=== PATIENT | female | born 1995 | race Caucasian/White ===

== ENCOUNTER 2020-08-19 21:52 | Emergency (ER) | payer SELFPAY ==
[2020-08-19 22:05] VITALS: BP 131/83; PULSE 111; RESP 18; TEMP 36.6; O2SAT 96; BMI 31.3
--- NOTE | 2020-08-19 22:09 | ED_ITS ---
HPI - Back Pain/Injury General: Chief Complaint: Back Pain/Injury Stated Complaint: L LOW BACK PAIN Time Seen by Provider: 08/19/20 22:09 History of Present Illness: HPI Narrative: Patient comes in today with complaints of right low back pain. Patient reports that it started about 2 days ago and she went floating yesterday and today the pain is much worse. Patient reports that she has had pain on and off since 2012 in the same area. Patient appears well. Patient denies any other medical concerns or issues. MD elicited complaint: back pain Pertinent past history: prior back pain Onset (ago): day(s) Timing: intermittent Severity: moderate Similar Symptoms Previously: Yes Quality: aching Location: right lower back Radiation: buttocks Exacerbating factors: movement and sitting upright Relieving factors: none Context: bending Review of Systems General: Reports: 10 or more systems reviewed and unremarkable except in HPI and below Musc: Reports: other (right lower back pain) Physical Exam Const: COMMON NORMALS: no acute distress and patient oriented x3 GENERAL APPEARANCE: cooperative HENMT: COMMON NORMALS: normocephalic and Normal external nose present HEAD & SCALP: normal to inspection and normocephalic NOSE: Normal external nose present Eye: GENERAL EYE: appearance normal, both eyes and all related structures Neck/C-Spine: COMMON NORMALS: full ROM Lymph: LYMPHATIC: no lymphadenopathy noted Chest: COMMONS NORMALS: normal inspection of the chest Resp: COMMON NORMALS: normal respiratory effort EFFORT & INSPECTION: Yes able to speak in complete sentences Cardio: COMMON NORMALS: regular rate and regular rhythm RATE: regular rate RHYTHM: regular rhythm GI: COMMON NORMALS: non-tender : COMMON NORMALS: Yes no CVA tenderness BLADDER/KIDNEY EXAM: Yes no CVA tenderness Back/Pelvis: COMMON NORMALS: no CVA tenderness OTHER: Patient has pain on palpation of the right sacroiliac area. No midline vertebral tenderness is noted on palpation. Extremity: COMMON NORMALS: normal to inspection Neuro: COMMON NORMALS: patient oriented x3 and moves all extremities Psych: COMMON NORMALS: mental status grossly normal and cooperative Skin: COMMON NORMALS: no rashes or lesions noted GENERAL SKIN EXAM: no rashes or lesions noted Course Vital Signs: Vital signs: Vital Signs Temperature 97.9 F 08/19/20 22:05 Pulse Rate 111 H 08/19/20 22:05 Respiratory Rate 18 08/19/20 22:05 Blood Pressure 131/83 08/19/20 22:05 Pulse Oximetry 96 08/19/20 22:05 MDM - Back Pain/Injury MDM Narrative: Medical decision making narrative: Patient comes in for right side low back pain. On exam in the sacroiliac joint area patient has significant tenderness and pain on palpation. Patient has positive leg lift test with the right leg. No vertebral tenderness is noted on palpation. Respirations are even lungs are clear to auscultation. Vital signs are normal. Differential diagnosis includes but not limited to intervertebral disc disease, facet arthropathy, sacroiliitis. Feel that the patient probably has sacroiliac dysfunction due to the way the pain is in the report of recurrent symptoms at times. I discussed with patient recommendations for treatment with anti- inflammatories. Patient reported understanding. We also wrote for a few hydrocodone for breakthrough pain. Patient reported understanding of care plan and need for follow-up or return to the ER. Lab Data: Labs: Lab Results 08/19/20 08/19/20 Range/Units 22:10 22:18 HCG, Qual Negative (Negative) Urine Color Yellow (Yellow) Urine Appearance Clear (CLEAR) Urine pH 5 (5-7) Ur Specific Gravit y 1.015 (1.005-1.030) Urine Protein Neg (Negative) Urine Glucose (UA) Norm (Normal) Urine Ketones Negative (Negative) Urine Blood Neg (Negative) Urine Nitrate Negative (Negative) Urine Bilirubin Neg (Negative) Urine Urobilinogen 1 H (Negative) mg/dL Ur Leukocyte Kamini ase Negative (Negative) Discharge Plan Discharge Patient Disposition: Home Clinical Impression: Sacroiliac dysfunction Condition: Stable Prescriptions: New hydrocodone-acetaminophen 5-325 mg tablet 1 tab PO Q8H PRN (Reason: pain (scale score 7-10)) Qty: 7 RF: 0 naproxen 500 mg tablet 500 mg PO BID Qty: 20 RF: 0 Discharge Orders: Discharge ED (Routine); Ordered 08/19/20 Ordered By: Bear Chan Discharge Diet: Usual diet Discharge Activity: Increase activity as tolerated Patient Instructions: Sacroiliitis (ED), Opioid Safety Activity Restrictions/Additional Instructions: Drink plenty of water with medication. Use naproxen routinely for the next 10 days. Take hydrocodone for breakthrough pain. Use acetaminophen along with the naproxen to control pain. Activity as tolerated. Gentle stretching and range of motion exercises. Follow-up with primary care for further instruction and consideration of other treatment options. Return to the emergency room for new concerns. Stand Alone Forms: Work/School Release Coding Level of Care Code ED Eyelet Operator for Mohsen Dunn Exam Comprehensive
[2020-08-19 22:23] LABS: HCG Qualitative Urine. Negative (Negative)
[2020-08-19 22:27] LABS: Add Urine Microscopic? NO; Charge for UA Resulting for Rev
[2020-08-19 22:32] LABS: Glucose Urine UA Norm (Normal); Ketones Urine Negative (Negative); Protein Urine Neg (Negative); Specific Gravity, Urine 1.015 (1.005-1.030); Urine Appearance Clear (CLEAR); Urine Color Yellow (Yellow); pH Urine 5 (5-7)
[2020-08-19 22:33] LABS: Bilirubin Urine Neg (Negative); Blood Urine Neg (Negative); Leukocyte Esterase Urine Negative (Negative); Nitrate Urine Negative (Negative); Urobilinogen Urine 1 mg/dL (Negative)
[2020-08-19] MEDS: ketorolac 30 mg/mL INJ IM (23:17)
[2020-08-20 00:08] VITALS: BP 135/80; PULSE 75; RESP 165; TEMP 36.6; O2SAT 98
== END 2020-08-20 00:10 | disposition home or self-care (01) ==
PROVIDERS: Emergency Provider Nurse Practitioner Family
DX: M53.3 Sacrococcygeal disorders, not elsewhere classified (principal)
CPT/HCPCS: 81003; 81025; 96372; 99283; J1885

== ENCOUNTER → 2021-02-14 11:30 | Outpatient (BNVA) | payer OTHER, SELFPAY | PROVIDERS: Visit Provider Nurse Practitioner Family | DX: Z20.822 Contact with and (suspected) exposure to COVID-19 (principal) | CPT/HCPCS: 87426; 87635 ==

== ENCOUNTER → 2021-03-27 15:40 | Outpatient (BNVA) | payer OTHER, SELFPAY | PROVIDERS: Visit Provider Nurse Practitioner Family | DX: Z20.822 Contact with and (suspected) exposure to COVID-19 (principal); I10 Essential (primary) hypertension | CPT/HCPCS: 87635 ==

== ENCOUNTER → 2021-03-30 11:13 | Outpatient (BNVA) | payer SELFPAY | PROVIDERS: PCP Nurse Practitioner Family; Visit Provider Nurse Practitioner Family | DX: I10 Essential (primary) hypertension (principal); N92.3 Ovulation bleeding; Z68.30 Body mass index [BMI] 30.0-30.9, adult; J06.9 Acute upper respiratory infection, unspecified | CPT/HCPCS: 80053; 84443; 84703 ==

== ENCOUNTER 2021-04-03 03:35 | Emergency (ER) | payer SELFPAY ==
--- NOTE | 2021-04-03 | USCV_ITS ---
Joy Sorenson Age: 26 Gender: F : 1995 Exam Date: 04/03/2021 04:30 Ordering Phys: Bryan Chapman MD Technologist: Yordy Roa Exam Location: [facility] [place]_ Indication: EVAL FOR LLE DVT PROCEDURES: Venous duplex imaging was performed in only the left lower extremity. The following venous structures were evaluated: common femoral vein, profunda vein, proximal portion of the greater saphenous vein, superficial femoral vein, and the popliteal vein. In addition, the posterior tibial and peroneal trunk were evaluated. Serial compression, augmentation maneuvers, and spectral Doppler flow evaluation were performed. FINDINGS: Normal 2-D Doppler and augmentation and compressibility throughout the lower extremity venous structures. Additional imaging through the proximal calf veins also reveals no thrombus. Limited evaluation of the greater saphenous vein is patent with no thrombus. CONCLUSIONS No DVT left lower extremity. Dr. Es Valdez DO (Electronically Signed) Final Date: 03 April 2021 08:24 S
[2021-04-03 03:43] VITALS: BP 144/99; PULSE 88; RESP 18; TEMP 36.2; O2SAT 99; BMI 34.4
[2021-04-03 03:45] VITALS: PULSE 88
--- NOTE | 2021-04-03 05:28 | W.ED.EXTPRO ---
HPI - Extremity Problem General: Time Seen by Provider: 04/03/21 05:22 Source: patient Mode of arrival: ambulatory Limitations: no limitations History of Present Illness: HPI Narrative: 26-year-old female states that she woke up this morning with a cramp in her left lower leg. She states she has a sharp pain in that left calf she rates a 5 out of 10 worse with walking improved with rest she states she just started HCTZ 2 days ago. Denies any history of blood clots. States she has had no known injuries denies any ankle or knee pain all of her pain is in her calf. Associated symptoms: Deny chest pain, fever(s) or rash Review of Systems Const: Denies: fever(s), chills, body aches or change in appetite Eyes: Denies: blurry vision or eye discomfort ENMT: Denies: throat pain or dental pain Card: Denies: chest pain Resp: Denies: dyspnea GI: Denies: abdominal pain, nausea, vomiting or diarrhea : Denies: dysuria Musc: Reports: extremity pain; Denies: neck pain or back pain Skin/Breast: Denies: rash Neuro: Denies: headache(s) Psych: Denies: depression Todd/Lymph: Denies: easy bruising All/Imm: Denies: urticaria PFSH ED PFSH: Medical History Hypertension Social History (Updated 04/03/21 @ 05:30 by Bryan Chapman MD) Substance/Drug Use: never Physical Exam Const: COMMON NORMALS: no acute distress, patient oriented x3 and healthy appearing HENMT: COMMON NORMALS: normocephalic and atraumatic HEAD & SCALP: normocephalic and atraumatic Eye: COMMON NORMALS: Equal, round and reactive pupils present and EOMs intact bilaterally PUPIL: Yes Equal, round and reactive pupils present Neck/C-Spine: COMMON NORMALS: full ROM and supple Chest: COMMONS NORMALS: normal inspection of the chest and normal palpation of entire chest wall Resp: COMMON NORMALS: normal respiratory effort, No retractions, No use of accessory muscles and clear to auscultation bilaterally AUSCULTATION: clear to auscultation bilaterally Cardio: COMMON NORMALS: regular rate, regular rhythm and No murmurs present (Cardio) RATE: regular rate RHYTHM: regular rhythm GI: COMMON NORMALS: Normal to inspection, nondistended, normoactive bowel sounds present, Soft to palpation, non-tender and no masses PALPATION: Yes Soft to palpation Extremity: COMMON NORMALS: full ROM NARRATIVE EXTREMITY EXAM: Slight tenderness to left calf no obvious deformity distal pulses intact Neuro: COMMON NORMALS: patient oriented x3, moves all extremities and no focal motor deficits Psych: COMMON NORMALS: mental status grossly normal, Normal thought process present and cooperative THOUGHT PROCESS: Normal thought process present Skin: COMMON NORMALS: no rashes or lesions noted and no wounds GENERAL SKIN EXAM: no rashes or lesions noted MDM - Extremity (Nontraumatic) MDM Narrative Medical decision making narrative: Patient presents here with left lower leg pain is likely cramps distal pulses intact ultrasound here showed no signs of DVT electrolytes were normal she is stable for discharge is to follow-up PCP and return if worsening. Lab Data Attestation: I reviewed the patient's lab results. Discharge Plan Discharge Patient Disposition: Home Clinical Impression: Leg pain, left Prescriptions: No Action herbal drugs Tablet PO 0RF hydrochlorothiazide 12.5 mg tablet 12.5 mg PO QAM Qty: 30 0RF Rx Instructions: 340 B benzonatate [Tessalon Perles] 100 mg capsule 100 mg PO TID Qty: 20 0RF Rx Instructions: 340 B Discharge Orders: Discharge ED (Routine); Ordered 04/03/21 Ordered By: Bryan Chapman Referrals: Carmen Bartlett FNP-C [Primary Care Provider] - Discharge Diet: Advance as tolerated Discharge Activity: Resume usual activity Patient Instructions: Leg Pain (ED) Coding Level of Care Code ED Commercial Real Estate Underwriter for Mohsen Dunn
--- NOTE | 2021-04-03 05:42 | PC.NURSE ---
pt arrived during downtime, assessment, meds and triage scanned into chart
[2021-04-03 05:50] LABS: Anion Gap 17.3 (5-19); Blood Urea Nitrogen 13 mg/dL (6-20); Calcium 9.2 mg/dL (8.5-10.5); Carbon Dioxide 23 mmol/L (22-29); Chloride 100 mmol/L (98-107); Glomerular Filtration Rate 87.4 mL/min (90-130); Glucose 106 mg/dL (65-115); Osmolality Calculated 285 mOsm/kg (285-295); Potassium 3.3 mmol/L (3.5-5.1); Sodium 137 mmol/L (136-145)
== END 2021-04-03 05:47 | disposition home or self-care (01) ==
PROVIDERS: Emergency Provider Emergency Medicine; PCP Nurse Practitioner Family
DX: M79.605 Pain in left leg (principal); I10 Essential (primary) hypertension
CPT/HCPCS: 12345; 80048; 93971; 99283

== ENCOUNTER 2021-05-02 11:58 | Emergency (ER) | payer SELFPAY ==
[2021-05-02 12:01] VITALS: BP 149/96; PULSE 69; RESP 18; TEMP 36.7; O2SAT 100; BMI 34.4
--- NOTE | 2021-05-02 12:21 | W.ED.FEMALGU ---
HPI - Female Genitourinary General: Chief complaint: Vaginal Bleeding Stated complaint: Passing bloodclots golfball size Time Seen by Provider: 05/02/21 12:11 Source: patient Mode of arrival: ambulatory Limitations: no limitations History of Present Illness: Patient is a nice 26-year-old female presents to ED today with a complaint of heavy vaginal bleeding that began around 2 AM this morning. Patient tells me she chronically has very abnormal and infrequent menstrual cycles. She states her last normal menstrual cycle was approximately 6 months ago. She is not on any kind of hormonal or control therapies. She states at [facility] they once diagnosed her with PCOS and placed her on Metformin states this did not seem to help with symptoms. She states she is passing golf ball size clots. Patient denies lightheadedness or dizziness. No syncopal episodes. She is not complaining of severe abdominal/pelvic pain or cramping. MD elicited complaint: vaginal bleeding Onset (ago): hour(s) Severity: moderate Vaginal discharge: none Vaginal bleeding: heavy, dark red, clots and # pads per hour (has soaked about 4 adult briefs since onset) Exacerbating factors: none Relieving factors: none Associated symptoms: Reports no associated symptoms; Deny abdominal pain, headache(s) or nausea Treatment prior to arrival: none Possible : unsure if Review of Systems Const: Denies: fever(s), chills, body aches, fatigue or malaise Card: Denies: chest pain Resp: Denies: dyspnea GI: Denies: abdominal pain, nausea, vomiting or diarrhea : Reports: vaginal bleeding and irregular period; Denies: flank pain, dysuria or pelvic pain Musc: Denies: back pain Skin/Breast: Denies: rash Neuro: Denies: headache(s) or dizziness [facility] ED PFSH: Medical History Hypertension Physical Exam Const: COMMON NORMALS: no acute distress, patient oriented x3, no limitations and alert GENERAL APPEARANCE: cooperative NUTRITIONAL APPEARANCE: overweight ORIENTATION/CONSCIOUSNESS: Yes awake, Yes oriented to person, Yes oriented to place and Yes oriented to time Resp: COMMON NORMALS: normal respiratory effort and clear to auscultation bilaterally AUSCULTATION: clear to auscultation bilaterally Cardio: COMMON NORMALS: regular rate and regular rhythm RATE: regular rate RHYTHM: regular rhythm : COMMON NORMALS: Yes no CVA tenderness and Yes normal external appearance BLADDER/KIDNEY EXAM: Yes no CVA tenderness SPECULUM EXAM - CERVIX: Yes Cervical os closed, No Cervical tenderness present and Yes Other cervical findings present (bleeding noted from cervical os; no clots in vaginal canal noted) BIMANUAL EXAM - VAGINA & UTERUS: No Cervical tenderness present and Yes non-tender BIMANUAL EXAM - ADNEXA, OTHER: Yes normal adnexae Back/Pelvis: COMMON NORMALS: no CVA tenderness Neuro: COMMON NORMALS: patient oriented x3 SENSORIUM/ORIENTATION: Yes alert, Yes oriented to person, Yes oriented to place and Yes oriented to time Course Vital Signs: Vital signs: Vital Signs Temperature 98.0 F 05/02/21 12:01 Pulse Rate 69 05/02/21 12:01 Respiratory Rate 18 05/02/21 12:01 Blood Pressure 134/90 05/02/21 13:08 Pulse Oximetry 98 05/02/21 13:08 MDM - Female Medical Decision Making Patient here for complaints of heavy vaginal bleeding. She has not had a menstrual cycle in 6 months. Vitals are normal. H/H normal. US showing top normal size endometrium and small ovarian follicles that could be consistent with PCOS. At this time we will place info with CM to get her set up with DIE STORAGE WORKER. Recommend close observation of symptoms/bleeding. If heavy bleeding persists we spoke about possibly placing her on some TXA or progesterone to help with bleeding. Patient verbalized return to ED precautions. Lab Data : 05/02/21 12:34 05/02/21 13:17 Radiology Impressions Transvaginal US 05/02/21 12:21 IMPRESSION: 1. Top normal size endometrium. No mass identified. 2. Multiple small peripheral ovarian follicles. Consistent with history of polycystic ovarian disease. Laboratory Results WBC 9.0 10^3/uL (4.0-10.0) 05/02/21 12:34 RBC 4.86 10^6/uL (4.1-5.3) 05/02/21 12:34 Hgb 13.5 g/dL (11.5-15.3) 05/02/21 12:34 Hct 41.8 % (37.0-47.0) 05/02/21 12:34 MCV 86.0 fl (81-99) 05/02/21 12:34 MCH 27.8 pg (28.0-34.0) L 05/02/21 12:34 MCHC 32.3 g/dL (30.0-36.0) 05/02/21 12:34 RDW 12.5 % (12.1-15.1) 05/02/21 12:34 Plt Count 418 10^3/cmm (130-400) H 05/02/21 12:34 MPV 9.8 fL (7.4-10.4) 05/02/21 12:34 Neut % (Auto) 65.5 % 05/02/21 12:34 Lymph % (Auto) 28.4 % 05/02/21 12:34 Harnett % (Auto) 3.9 % 05/02/21 12:34 Eos % (Auto) 1.3 % 05/02/21 12:34 Baso % (Auto) 0.6 % 05/02/21 12:34 Neut # (Auto) 5.88 10^3/uL (1.8-7.7) 05/02/21 12:34 Lymph # (Auto) 2.6 10^3/uL (0.8-4.8) 05/02/21 12:34 Harnett # (Auto) 0.4 10^3/uL (0.2-0.9) 05/02/21 12:34 Eos # (Auto) 0.1 10^3/uL (0.0-0.8) 05/02/21 12:34 Baso # (Auto) 0.1 10^3/uL (0.0-0.1) 05/02/21 12:34 Nucleated RBC % (auto) 0 % 05/02/21 12:34 Nucleated RBCs # 0.0 /100WBC 05/02/21 12:34 Sodium 139 mmol/L (136-145) 05/02/21 13:17 Potassium 4.1 mmol/L (3.5-5.1) 05/02/21 13:17 Chloride 104 mmol/L (98-107) 05/02/21 13:17 Carbon Dioxide 25 mmol/L (22-29) 05/02/21 13:17 Anion Gap 14.1 (5-19) 05/02/21 13:17 BUN 10 mg/dL (6-20) 05/02/21 13:17 Creatinine 0.8 mg/dL (0.5-0.9) 05/02/21 13:17 GFR Calculation 87.4 mL/min (90-130) L 05/02/21 13:17 Glucose 99 mg/dL (65-115) 05/02/21 13:17 Calculated Osmolality 287 mOsm/kg (285-295) 05/02/21 13:17 Calcium 10.0 mg/dL (8.5-10.5) 05/02/21 13:17 Total Bilirubin 0.3 mg/dL (0.15-1.2) 05/02/21 13:17 AST 21 U/L (0-32) 05/02/21 13:17 ALT 36 U/L (0-33) H 05/02/21 13:17 Alkaline Phosphatase 109 IU/L (35-105) H 05/02/21 13:17 Total Protein 7.6 g/dL (6.6-8.7) 05/02/21 13:17 Albumin 4.6 g/dL (3.5-5.2) 05/02/21 13:17 Globulin 3.0 g/dL (1.3-4.6) 05/02/21 13:17 HCG, Qual Negative (Negative) 05/02/21 13:17 Discharge Plan Discharge Patient Disposition: Home Clinical Impression: Heavy menstrual bleeding Qualifiers: Menorrhagia type: with irregular cycle Qualified Code(s): N92.1 - Excessive and frequent menstruation with irregular cycle Condition: Stable Prescriptions: No Action herbal drugs Tablet PO 0RF hydrochlorothiazide 12.5 mg tablet 12.5 mg PO QAM Qty: 30 0RF Rx Instructions: 340 B benzonatate [Tessalon Perles] 100 mg capsule 100 mg PO TID Qty: 20 0RF Rx Instructions: 340 B Discharge Orders: Discharge ED (Routine); Ordered 05/02/21 Ordered By: Vangie Alvares Referrals: Carmen Bartlett FNP-C [Primary Care Provider] - Activity Restrictions/Additional Instructions: As we discussed case management should contact you over the next few days to set you up with a community health counselor for further evaluation. Monitor bleeding closely over the next 24 to 48 hours. You need to return to the emergency department for continual heavy bleeding, worsening bleeding, soaking more than 1 pad/brief an hour, lightheadedness/dizziness/passing out episodes, or any other concerns you may have. Coding Level of Care Code ED Exhibits Coordinator for Chg Fwd Exam Expanded Problem Focused
--- NOTE | 2021-05-02 12:21 | US_ITS ---
WS: [id number] TRANSVAGINAL PELVIC ULTRASOUND HISTORY: heavy vaginal bleeding/clots COMPARISON: None available. Uterus: 7.1 cm x 5.7 cm x 3.1 cm. Retroverted uterus is normal size. No fibroid or mass. Normal myome trium. Small nabothian cysts at the cervix. Endometrium: 1.5 cm. Top normal size endometrium. No mass or increased vascularity. Right ovary: 2.8 cm x 2.5 cm x 2.5 cm. Normal size and vascularity, no cystic or solid masses. Maria Elena us small peripheral follicles. Left ovary: 3.7 cm x 2.3 cm x 3.1 cm. Normal size and vascularity, no cystic or solid masses. Numerou s small peripheral follicles. No free fluid. US/US transvaginal [id number] IMPRESSION: 1. Top normal size endometrium. No mass identified. 2. Multiple small peripheral ovarian follicles. Consistent with history of katelin ycystic ovarian disease.
[2021-05-02 12:39] LABS: Basophils # 0.1 10^3/uL (0.0-0.1); Basophils % 0.6 %; Eosinophils # 0.1 10^3/uL (0.0-0.8); Eosinophils % 1.3 %; Hematocrit 41.8 % (37.0-47.0); Hemoglobin 13.5 g/dL (11.5-15.3); Lymphocytes # 2.6 10^3/uL (0.8-4.8); Lymphocytes % 28.4 %; Mean Corpuscular HGB Conc 32.3 g/dL (30.0-36.0); Mean Corpuscular Hemoglobin 27.8 pg (28.0-34.0); Mean Platelet Volume 9.8 fL (7.4-10.4); Monocytes # 0.4 10^3/uL (0.2-0.9); Monocytes % 3.9 %; Neutrophils # 5.88 10^3/uL (1.8-7.7); Neutrophils % 65.5 %; Nucleated Red Blood Cells % 0 %; Platelet Count 418 10^3/cmm (130-400); Red Blood Count 4.86 10^6/uL (4.1-5.3); Red Cell Distribution Width 12.5 % (12.1-15.1)
[2021-05-02 13:08] VITALS: BP 134/90; O2SAT 98
[2021-05-02 13:36] LABS: HCG, Serum Qual Negative (Negative)
[2021-05-02 13:45] LABS: Alanine Aminotransferase 36 U/L (0-33); Albumin Level 4.6 g/dL (3.5-5.2); Alkaline Phosphatase 109 IU/L (35-105); Anion Gap 14.1 (5-19); Aspartate Amino Transferase 21 U/L (0-32); Blood Urea Nitrogen 10 mg/dL (6-20); Carbon Dioxide 25 mmol/L (22-29); Chloride 104 mmol/L (98-107); Glomerular Filtration Rate 87.4 mL/min (90-130); Glucose 99 mg/dL (65-115); Osmolality Calculated 287 mOsm/kg (285-295); Potassium 4.1 mmol/L (3.5-5.1); Sodium 139 mmol/L (136-145); Total Bilirubin 0.3 mg/dL (0.15-1.2); Total Protein 7.6 g/dL (6.6-8.7)
[2021-05-02 14:00] VITALS: BP 122/68; PULSE 76; RESP 16; O2SAT 98
--- NOTE | 2021-05-02 14:27 | PC.NURSE ---
PATIENT DISCHARGE TO HOME- PATIENT VERBALIZES UNDERSTANDING OF ALL INSTRUCTIONS AND FOLLOW UPS, PATIENT AMBULATED FROM THE ED
--- NOTE | 2021-05-08 15:18 | DCPLANNER ---
Addendum entered by Alexus Thao 05/22/21 08:28: catering sales manager spoke with Yuan at [facility] about referral. catering sales manager was told that clinic was unable to reach patient that a letter was sent to patient, asking patient to call clinic to schedule follow up appointment. Original Note: catering sales manager had message to schedule a follow up appointment for patient with [facility]. catering sales manager called [facility], spoke with Yuan, gave clinic patients information. catering sales manager was told that patients information would be printed and reviewed. Clinic will call patient with appointment information.
== END 2021-05-02 14:34 | disposition home or self-care (01) ==
PROVIDERS: Emergency Provider Physician Assistant; PCP Nurse Practitioner Family
DX: N92.1 Excessive and frequent menstruation with irregular cycle (principal); I10 Essential (primary) hypertension
CPT/HCPCS: 76830; 80053; 84703; 85025; 99283

== ENCOUNTER 2021-07-21 10:05 | Inpatient (IN) | payer SELFPAY ==
[2021-07-21] VITALS (22 sets, daily range): BP systolic 102–138; BP diastolic 51–87; PULSE 66–90; RESP 16–22; TEMP 36.7–36.8; O2SAT 96–100; BMI 34.4
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
--- NOTE | 2021-07-21 10:11 | ECG_ITS ---
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 Measurements Intervals [place] Rate: 68 P: 29 LA: 160 QRS: 61 QRSD: 82 T: 54 QT: 376 QTc: 403 Interpretive Statements SINUS RHYTHM WITH OCCASIONAL SUPRAVENTRICULAR PREMATURE COMPLEXES No previous ECG available for comparison Electronically Signed On 07-21-2021 12:38:36 CDT by Carlota Hall M.D. [email or web address]
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
[2021-07-21] MEDS: fentaNYL 50 mcg/mL INJ 2mL IVP ×2 (10:22→11:18)
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
[2021-07-21 10:27] LABS: Basophils # 0.1 10^3/uL (0.0-0.1); Basophils % 0.4 %; Eosinophils # 0.2 10^3/uL (0.0-0.8); Eosinophils % 1.1 %; Hematocrit 34.3 % (37.0-47.0); Hemoglobin 9.6 g/dL (11.5-15.3); Lymphocytes # 2.5 10^3/uL (0.8-4.8); Lymphocytes % 18.6 %; Mean Corpuscular Hemoglobin 20.7 pg (28.0-34.0); Mean Corpuscular Volume 74.1 fl (81-99); Mean Platelet Volume 9.8 fL (7.4-10.4); Monocytes # 0.6 10^3/uL (0.2-0.9); Monocytes % 4.2 %; Neutrophils # 10.14 10^3/uL (1.8-7.7); Neutrophils % 74.9 %; Nucleated Red Blood Cells % 0 %; Platelet Count 490 10^3/cmm (130-400); Red Blood Count 4.63 10^6/uL (4.1-5.3); Red Cell Distribution Width 18.6 % (12.1-15.1); White Blood Count 13.5 10^3/uL (4.0-10.0)
[2021-07-21 10:37] LABS: HCG, Serum Qual Negative (Negative)
[2021-07-21 10:46] LABS: Alanine Aminotransferase 51 U/L (0-33); Albumin Level 4.4 g/dL (3.5-5.2); Alkaline Phosphatase 110 IU/L (35-105); Aspartate Amino Transferase 47 U/L (0-32); Blood Urea Nitrogen 14 mg/dL (6-20); Calcium 9.2 mg/dL (8.5-10.5); Carbon Dioxide 22 mmol/L (22-29); Chloride 105 mmol/L (98-107); Globulin 3.2 g/dL (1.3-4.6); Glomerular Filtration Rate 87.4 mL/min (90-130); Glucose 152 mg/dL (65-115); Osmolality Calculated 293 mOsm/kg (285-295); Sodium 140 mmol/L (136-145); Total Bilirubin 0.3 mg/dL (0.15-1.2); Total Protein 7.6 g/dL (6.6-8.7)
[2021-07-21] MEDS: iohexol 300 mg/mL 100 mL Btl IV (10:46)
[2021-07-21] MEDS: ondansetron 2 mg/ML SDV 2 mL 4 MG IVP (11:23)
[2021-07-21 11:54] LABS: Basophils # 0.1 10^3/uL (0.0-0.1); Basophils % 0.3 %; Eosinophils % 0.1 %; Hematocrit 33.8 % (37.0-47.0); Hemoglobin 9.4 g/dL (11.5-15.3); Lymphocytes # 1.4 10^3/uL (0.8-4.8); Lymphocytes % 5.9 %; Mean Corpuscular HGB Conc 27.8 g/dL (30.0-36.0); Mean Corpuscular Hemoglobin 20.6 pg (28.0-34.0); Mean Platelet Volume 9.7 fL (7.4-10.4); Monocytes # 1.1 10^3/uL (0.2-0.9); Monocytes % 4.4 %; Neutrophils # 21.11 10^3/uL (1.8-7.7); Neutrophils % 88.4 %; Nucleated Red Blood Cells % 0 %; Platelet Count 478 10^3/cmm (130-400); Red Blood Count 4.57 10^6/uL (4.1-5.3); Red Cell Distribution Width 18.5 % (12.1-15.1); White Blood Count 23.9 10^3/uL (4.0-10.0)
[2021-07-21] MEDS: morphine 4 mg/mL SDV 1 mL 6 MG IVP (12:27)
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
[2021-07-21] MEDS: midazolam 1 mg/mL INJ 2 mL 5 MG IVP (13:15)
[2021-07-21] MEDS: fentaNYL 50 mcg/mL INJ 2mL 100 MCG IVP (13:20)
[2021-07-21] MEDS: ceFAZolin 1,000 mg SDV 1000 MG IVP (13:30)
[2021-07-21] MEDS: tetanus-dipt-pertussis 0.5 mL SDV IM (13:45)
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
[2021-07-21] MEDS: bacitracin ointment Pkt 1 EACH TOPICAL (14:35)
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
[2021-07-21] MEDS: morphine 4 mg/mL SDV 1 mL 8 MG IVP (15:15)
[2021-07-21] MEDS: pantoprazole 40 mg SDV IVP (16:16)
--- NOTE | 2021-07-21 16:23 | PC.NURSE ---
1415 Initiation of conscious sedation for reduction of right tib/fib/ankle and repair of bilateral proximal tib/fib lacerations. Consent signed and time out performed. Patient received a total of 5mg of versed and 100 mcg of fentanyl. Ankle reduced by Dr. Lr and xrays immediately obtained/post reduction. Patient tolerated procedure well and Posterior orthoglass splint placed with webril and secured with 6 inch frank x 2. Underlying abrasion of anterior distal tib/fib dressed with xeroform and telfa before placing splint. Left proximal anterior lower leg also cleansed and repaired with suture by Physician. Right laceration cleansed and repaired at anterior proximal lower leg, as well. Length of procedure(s) approx 30 minutes with physician at bedside, at all times Patient tolerated procedures well. Post repair CT of Right knee and ankle performed. Patient remained stable during entire procedure(s)
[2021-07-21] MEDS: HYDROcodone-acetaminophen 5-325 mg Tablet 1 TAB PO ×2 (17:24→21:18)
[2021-07-21] MEDS: enoxaparin 40 mg/0.4 mL Syringe SUBCUT (17:24)
[2021-07-21] MEDS: D5-NS 0.45% + KCL 20 mEq 20 MEQ/1,000 ML BAG 125 MEQ IV (17:25)
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
[2021-07-21 19:12] LABS: Add Urine Microscopic? NO; Charge for UA Resulting for Rev
[2021-07-21 19:15] LABS: Bilirubin Urine Neg (Negative); Blood Urine Neg (Negative); Glucose Urine UA Norm (Normal); Ketones Urine Negative (Negative); Leukocyte Esterase Urine Negative (Negative); Nitrate Urine Negative (Negative); Protein Urine Neg (Negative); Urine Appearance Clear (CLEAR); Urine Color Yellow (Yellow); Urobilinogen Urine Norm (Negative); pH Urine 5 (5-7)
[2021-07-21] MEDS: morphine 4 mg/mL SDV 1 mL IVP ×2 (19:29→23:35)
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
[2021-07-21] MEDS: ceFAZolin 1,000 MG in sodium chloride 0.9% (plus) 50 ML 100 MG IV (21:19)
[2021-07-21] MEDS: scopolamine 1.5 Patch 1 PATCH TRANSDERMA (21:19)
--- NOTE | 2021-07-21 22:17 | PC.NURSE ---
Addendum entered by Lorenza Sevilla RN 07/22/21 03:07: Dr. Buckley at bedside and removed FRANK bandage and cotton to assess ankle alignment. Decided against changing splint into a camboot. Dr. Buckley loosely wrapped foot and not the ankle to the splint. Pt not tolerating frank bandage on ankle or up leg. Original Note: Pt continuously notifying staff of c/o pain to ankle. Rating pain 10/10 on 0-10 scale and tearful. Glennie and morphine administered as ordered. Review EMAR. Attempts at repositioning, ice, and distraction. Continued c/o severe pain. Dr. Buckley called and notified. Dr. Buckley arrived on the unit and reassessed patient. Ankle noted to be in good position. Education given to patient in regards to pain medication. Verbal order to change norco to percocet 10/325 mg 1 tab PO every 4 hours as needed for pain but wait until the four hours after administering the norco to start the percocet. Education given to patient on the time frame and frequency of oxycodone. Patient was unable to recall if she was allergic to hydrocodone or oxycodone as a child. Clarification on the reaction and pt stated a rash. Pt also stating she recently received oxycodone and tolerated it well. No reactions noted this shift to norco administration. Pt requesting fentanyl. Education given that medication is not administered on this unit d/t respiratory depression that can happen.
[2021-07-22] VITALS (23 sets, daily range): BP systolic 100–130; BP diastolic 47–83; PULSE 77–97; RESP 13–18; TEMP 36.2–37.5; O2SAT 90–99
--- NOTE | 2021-07-22 | SCC_ITS ---
Procedure done: Open reduction internal fixation right pilon fracture involving tibia and fibula. CPT code 94503 98.5 seconds of fluoroscopic guidance, for a cumulative dose of 1.88 mGy, was provided to Dr. Irizarry by the radiology department. C-arm images of the RIGHT tibia and fibual were saved for the patient's permanent record. [facility]
--- NOTE | 2021-07-22 | XR_ITS ---
WS: [id number] INTRAOPERATIVE TECHNIQUE: 8 Spot fluoroscopic images for intraoperative purposes. FLUOROSCOPY TIME: 98.5 seconds CLINICAL INFORMATION: YE PICS COMPARISON: None. FINDINGS: Trimalleolar fracture repair. Postoperative changes plate and screw fixation mid and distal fibula. P late and screw fixation across the medial malleolus and posterior malleolus. XR/XR tibia fibula RT 2V [id number] IMPRESSION: Images obtained for intraoperative purposes.
[2021-07-22] MEDS: oxyCODONE-APAP 10-325 mg Tablet 1 TAB PO ×2 (01:31→05:26)
[2021-07-22] MEDS: D5-NS 0.45% + KCL 20 mEq 20 MEQ/1,000 ML BAG 125 MEQ IV ×2 (01:31→18:22)
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
--- NOTE | 2021-07-22 03:10 | PC.NURSE ---
Pt requesting this RN to reposition right ankle. This RN stated not comfortable with moving the ankle d/t the penny wrap only securing the foot to the splint and do not want to compromise blood flow. Pt noted to be restless this shift and making several attempts to reposition RLE herself. PENNY bandage loosened per pt adjustments. RN educated pt on the importance of proper alignment. Pt verbalized understanding then proceeded to ask this RN to place cotton under her right heel. This RN declined and re-educated pt.
[2021-07-22] MEDS: morphine 4 mg/mL SDV 1 mL IVP ×2 (03:30→21:23)
[2021-07-22] MEDS: ceFAZolin 1,000 MG in sodium chloride 0.9% (plus) 50 ML 100 MG IV ×2 (05:26→18:14)
[2021-07-22 05:35] LABS: Basophils % 0.2 %; Eosinophils % 0.1 %; Hematocrit 28.7 % (37.0-47.0); Hemoglobin 7.9 g/dL (11.5-15.3); Lymphocytes # 1.5 10^3/uL (0.8-4.8); Lymphocytes % 16.7 %; Mean Corpuscular HGB Conc 27.5 g/dL (30.0-36.0); Mean Corpuscular Volume 72.7 fl (81-99); Mean Platelet Volume 9.9 fL (7.4-10.4); Monocytes # 0.7 10^3/uL (0.2-0.9); Monocytes % 8.3 %; Neutrophils # 6.55 10^3/uL (1.8-7.7); Neutrophils % 74.4 %; Nucleated Red Blood Cells % 0 %; Platelet Count 374 10^3/cmm (130-400); Red Blood Count 3.95 10^6/uL (4.1-5.3); Red Cell Distribution Width 18.6 % (12.1-15.1); White Blood Count 8.8 10^3/uL (4.0-10.0)
[2021-07-22 05:54] LABS: Anion Gap 13.8 (5-19); Blood Urea Nitrogen 6 mg/dL (6-20); Calcium 8.7 mg/dL (8.5-10.5); Carbon Dioxide 22 mmol/L (22-29); Chloride 106 mmol/L (98-107); Glomerular Filtration Rate 121.8 mL/min (90-130); Glucose 136 mg/dL (65-115); Osmolality Calculated 286 mOsm/kg (285-295); Phosphorus 3.5 mg/dL (2.5-4.5); Potassium 3.8 mmol/L (3.5-5.1); Sodium 138 mmol/L (136-145)
--- NOTE | 2021-07-22 07:07 | PC.NURSE ---
Pt notified this RN of wanting to remove the pad from underneath her. This RN educated pt that it was to protect her from the air lift pad under her. Pt proceeded to lift buttock and state I don't care. It feels like a diaper bunched underneath me and started to remove the pad. Approx 30 minutes later pt notifies this RN that I'm itching and I think it is from the oxycodone . No visible rash or redness noted to body. Pt educated that she is laying on the plastic lift from removing the other. Pt needs continued education.
--- NOTE | 2021-07-22 07:21 | PC.NURSE ---
0720-RN attempted to notify pts of surgery time being changed. there was no answer and voicemail had not been set up. will attempt again.
--- NOTE | 2021-07-22 07:24 | PC.NURSE ---
pt acknowledged that rn called , pt had talked to him and let him know of update surgery time
[2021-07-22] MEDS: acetaminophen 1,000 MG/100 ML PIGGYBACK 400 MG IV (07:56)
[2021-07-22] MEDS: sodium chloride 0.9% 1,000 ML 30 ML IV (08:02)
[2021-07-22] MEDS: diphenhydrAMINE 50 mg/mL SDV 1mL 12.5 MG IVP (08:04)
--- NOTE | 2021-07-22 08:06 | W.PM.OPSUD ---
Surgery/Procedure H&P Update DATE OF PROCEDURE: July 22, 2021 DATE H&P PERFORMED: 07/21/21 CHANGES TO PREVIOUS DOCUMENTATION: None PREOP DIAGNOSIS: Right ankle fracture PLANNED PROCEDURE: Operation Date: 07/22/21 09:20 Proposed Procedures p External Fixator Ankle(Right) - Tate Buckley DPM s ORIF Ankle(Right) - Tate Buckley DPM
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
--- NOTE | 2021-07-22 10:01 | PC.NURSE ---
spoke with patients harsha and gave update
--- NOTE | 2021-07-22 11:36 | PC.NURSE ---
spoke with patient's Enrique and gave him an update
--- NOTE | 2021-07-22 12:14 | ANE.PACU2 ---
Inpatient post-anesthesia follow up: Airway intact: Yes Vital signs: Temperature 98.4 F Pulse Rate 80 Respiratory Rate 18 Blood Pressure 125/74 Pulse Oximetry 97 Oxygen Delivery Me thod Room Air Oxygen Flow Rate 2 Fraction of Inspir ed Oxygen Hydration adequate: Yes Nausea and vomiting: No Pain level: 2 Mental status: Baseline
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
[2021-07-22] MEDS: pantoprazole 40 mg SDV IVP (18:14)
[2021-07-22] MEDS: enoxaparin 40 mg/0.4 mL Syringe SUBCUT (18:15)
[2021-07-22] MEDS: HYDROcodone-acetaminophen 5-325 mg Tablet 1 TAB PO ×2 (19:22→23:29)
[2021-07-23] VITALS (14 sets, daily range): BP systolic 98–117; BP diastolic 57–69; PULSE 92–115; RESP 16–20; TEMP 36.4–37.2; O2SAT 94–100
[2021-07-23] MEDS: ceFAZolin 1,000 MG in sodium chloride 0.9% (plus) 50 ML 100 MG IV ×3 (00:43→17:04)
[2021-07-23] MEDS: D5-NS 0.45% + KCL 20 mEq 20 MEQ/1,000 ML BAG 125 MEQ IV ×3 (00:44→17:27)
[2021-07-23] MEDS: morphine 4 mg/mL SDV 1 mL IVP ×2 (02:25→06:25)
[2021-07-23] MEDS: HYDROcodone-acetaminophen 5-325 mg Tablet 1 TAB PO ×2 (04:22→08:39)
[2021-07-23 04:48] LABS: Basophils % 0.1 %; Hematocrit 28.3 % (37.0-47.0); Hemoglobin 7.8 g/dL (11.5-15.3); Lymphocytes # 1.5 10^3/uL (0.8-4.8); Lymphocytes % 10.3 %; Mean Corpuscular HGB Conc 27.6 g/dL (30.0-36.0); Mean Corpuscular Hemoglobin 20.4 pg (28.0-34.0); Mean Corpuscular Volume 74.1 fl (81-99); Mean Platelet Volume 9.5 fL (7.4-10.4); Monocytes # 0.9 10^3/uL (0.2-0.9); Monocytes % 6.3 %; Neutrophils # 12.43 10^3/uL (1.8-7.7); Neutrophils % 82.7 %; Nucleated Red Blood Cells % 0 %; Platelet Count 404 10^3/cmm (130-400); Red Blood Count 3.82 10^6/uL (4.1-5.3); Red Cell Distribution Width 18.7 % (12.1-15.1)
--- NOTE | 2021-07-23 04:48 | PC.NURSE ---
Pt receiving morphine and norco approx every 4 hours as needed this shift. Review EMAR. Pt noted to be crying in room at this time with c/o severe pain to right ankle and left ribs. Pt stating it's cutting off my circulation to right ankle. Toes noted to be pink and warm. Cap refill 2 seconds. Education that only the surgeon can unwrap the bandage and no signs of decreased blood flow. Pt refused to attempt ice to ankle. Remains elevated on pillows. Education performed on the popliteal block wearing off.
[2021-07-23 05:10] LABS: Blood Urea Nitrogen 6 mg/dL (6-20); Calcium 8.6 mg/dL (8.5-10.5); Carbon Dioxide 24 mmol/L (22-29); Chloride 106 mmol/L (98-107); Glomerular Filtration Rate 121.8 mL/min (90-130); Glucose 129 mg/dL (65-115); Magnesium 2.2 mg/dL (1.7-2.3); Osmolality Calculated 287 mOsm/kg (285-295); Phosphorus 2.6 mg/dL (2.5-4.5); Sodium 139 mmol/L (136-145)
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
--- NOTE | 2021-07-23 09:11 | PM.PN ---
Subjective Subjective: The patient has undergone open reduction internal fixation of her ankle with Dr. Buckley. He will be following her for this. I will continue to follow her for her patella fracture. Medications: Reviewed: Yes Vitals/I&O/Wt Last Vital Signs Temp 98.7 F 07/23/21 07:15 Pulse 106 H 07/23/21 07:15 Resp 16 07/23/21 07:15 BP 98/59 07/23/21 07:15 Pulse Ox 94 07/23/21 07:15 07/22/21 07/23/21 07/23/21 22:59 06:59 14:59 Intake Total 410 / 3210 1556.250 / 4766.250 Output Total 1100 / 1650 1200 / 2850 Balance -690 / 1560 356.250 / 1916.250 Weight last 48 hrs Weight 220 lb Physical Exam Const: COMMON NORMALS: no acute distress, average body habitus, patient oriented x3 and alert GENERAL APPEARANCE: cooperative and comfortable ORIENTATION/CONSCIOUSNESS: Yes awake HENMT: COMMON NORMALS: normocephalic and atraumatic HEAD & SCALP: normocephalic and atraumatic Eye: GENERAL EYE: appearance normal, both eyes and all related structures Chest: COMMONS NORMALS: normal inspection of the chest Resp: COMMON NORMALS: normal respiratory effort EFFORT & INSPECTION: Yes able to speak in complete sentences and Yes symmetric chest movement Extremity: RIGHT LOWER EXTREMITY: Yes knee joint (Dressing removed. Wound is benign with no drainage.) Right knee: Yes inspection (Minimal swelling.), Yes ROM (Not evaluated.) and Yes neurovascular exam (Intact distally.) and Yes foot & digits (Splinted following ORIF. Swelling in toes.) Neuro: COMMON NORMALS: patient oriented x3 SENSORIUM/ORIENTATION: Yes alert Psych: COMMON NORMALS: mental status grossly normal APPEARANCE: Yes grossly normal ATTITUDE: Yes calm and Yes engaged ATTENTION/CONCENTRATION: Yes attention grossly intact Skin: COMMON NORMALS: no rashes or lesions noted GENERAL SKIN EXAM: no rashes or lesions noted Urinary Catheter Management: Bishop: Cath Placed During This Visit: yes Reason for Continuing Indwelling Catheter: Required Immobilization for Trauma or Surgery or Anesthesia Urinary Catheter Date of Insertion: 07/22/21 Urinary Catheter Time of Insertion: 01:30 Data : 07/23/21 04:27 07/23/21 04:27 A&P Assessment and plan (1) Open fracture of right patella: Patellar fracture is only minimally displaced. It should not require open reduction internal fixation. It was washed out in the emergency room and antibiotics were given. The laceration was closed. We will continue antibiotics and observe. Status: Acute (2) Closed pilon fracture of left tibia: Treated with ORIF by Dr. Bcukley yesterday. She is doing well today. Status: Acute Qualifiers: Encounter type: initial encounter Fracture alignment: displaced Qualified Code(s): S82.872A - Displaced pilon fracture of left tibia, initial encounter for closed fracture (3) Closed fracture of right distal fibula: This was addressed at the same time as above. Status: Acute Qualifiers: Encounter type: initial encounter Fracture morphology: unspecified fracture morphology Qualified Code(s): S82.831A - Other fracture of upper and lower end of right fibula, initial encounter for closed fracture Attestations Medical Necessity Statement*: Ongoing care for multiple right lower extremity fractures. Coding Level of Care Code Acute Electrical Contractor for [facility] Fwd Diagnoses Closed pilon fracture of left tibia S82.872A Encounter type: initial encounter Fracture alignment: displaced Closed fracture of right distal fibula S82.831A Encounter type: initial encounter Fracture morphology: unspecified fracture morphology Open fracture of right patella S82.001B
[2021-07-23] MEDS: oxyCODONE-APAP 10-325 mg Tablet 1 TAB PO ×2 (10:40→18:21)
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
[2021-07-23] MEDS: ketorolac 30 mg/mL INJ IVP ×2 (13:05→18:21)
[2021-07-23] MEDS: HYDROmorphone 1 mg/mL INJ 1 mL IVP ×3 (13:05→22:38)
[2021-07-23] MEDS: pantoprazole 40 mg SDV IVP (14:14)
[2021-07-23] MEDS: enoxaparin 40 mg/0.4 mL Syringe SUBCUT (17:04)
[2021-07-24] VITALS (11 sets, daily range): BP systolic 116–140; BP diastolic 67–85; PULSE 94–110; RESP 16–18; TEMP 36.7–37.3; O2SAT 93–96
[2021-07-24] MEDS: ceFAZolin 1,000 MG in sodium chloride 0.9% (plus) 50 ML 100 MG IV ×2 (00:16→08:02)
[2021-07-24] MEDS: oxyCODONE-APAP 10-325 mg Tablet 1 TAB PO ×3 (00:16→15:56)
[2021-07-24] MEDS: ketorolac 30 mg/mL INJ IVP ×3 (00:16→14:55)
[2021-07-24] MEDS: D5-NS 0.45% + KCL 20 mEq 20 MEQ/1,000 ML BAG 125 MEQ IV ×2 (01:39→10:28)
[2021-07-24] MEDS: HYDROmorphone 1 mg/mL INJ 1 mL IVP ×2 (04:22→08:32)
[2021-07-24] MEDS: ondansetron 2 mg/ML SDV 2 mL 4 MG IVP (06:15)
[2021-07-24 06:27] LABS: Basophils % 0.3 %; Eosinophils % 0.2 %; Hematocrit 26.4 % (37.0-47.0); Lymphocytes # 2.2 10^3/uL (0.8-4.8); Lymphocytes % 22.4 %; Mean Corpuscular HGB Conc 26.5 g/dL (30.0-36.0); Mean Corpuscular Hemoglobin 20.1 pg (28.0-34.0); Mean Corpuscular Volume 75.9 fl (81-99); Mean Platelet Volume 9.5 fL (7.4-10.4); Monocytes # 0.8 10^3/uL (0.2-0.9); Monocytes % 8.2 %; Neutrophils # 6.64 10^3/uL (1.8-7.7); Neutrophils % 68.3 %; Nucleated Red Blood Cells % 0.2 %; Platelet Count 331 10^3/cmm (130-400); Red Blood Count 3.48 10^6/uL (4.1-5.3); Red Cell Distribution Width 18.8 % (12.1-15.1); White Blood Count 9.7 10^3/uL (4.0-10.0)
[2021-07-24 06:52] LABS: Anion Gap 12.2 (5-19); Blood Urea Nitrogen 5 mg/dL (6-20); Calcium 7.6 mg/dL (8.5-10.5); Carbon Dioxide 24 mmol/L (22-29); Chloride 106 mmol/L (98-107); Glomerular Filtration Rate 150.3 mL/min (90-130); Glucose 131 mg/dL (65-115); Osmolality Calculated 285 mOsm/kg (285-295); Phosphorus 2.6 mg/dL (2.5-4.5); Potassium 4.2 mmol/L (3.5-5.1); Sodium 138 mmol/L (136-145)
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
--- NOTE | 2021-07-24 16:47 | PC.OT ---
OT TREATMENT HELD TODAY DUE TO SCHEDULED PATIENT DISCHARGE
[2021-07-24] MEDS: enoxaparin 40 mg/0.4 mL Syringe SUBCUT (17:05)
== END 2021-07-24 17:09 | disposition home or self-care (01) | DRG 493 ==
LOC: ER 14:32 → MEDSURG 15:19
PROVIDERS: Podiatrist Foot & Ankle Surgery; Admitting Provider Surgery; Emergency Provider Family Medicine; PCP Nurse Practitioner Family; Visit Provider Surgery
PROC: 0QSG04Z Reposition Right Tibia with Internal Fixation Device, Open Approach (ICD-10-PCS; 2021-07-22 09:00)
DX: S82.871A Displaced pilon fracture of right tibia, initial encounter for closed fracture (principal); S22.42XA Multiple fractures of ribs, left side, initial encounter for closed fracture; S82.001B Unspecified fracture of right patella, initial encounter for open fracture type I or II; V43.53XA Car driver injured in collision with pick-up truck in traffic accident, initial encounter; I10 Essential (primary) hypertension; E28.2 Polycystic ovarian syndrome; D64.9 Anemia, unspecified
CPT/HCPCS: 36415; 51702; 64450; 70450; 71260; 72125; 73562; 73590; 73600; 73700; 74177; 76000; 76942; 80048; 80053; 81003; 83735; 84100; 84703; 85025; 86850; 86900; 90471; 90715; 93005; 94664; 96372; 96374; 96375; 96376; 97116; 97161; 97166; 99285; C1713; C9113; J0690; J1100; J1170; J1200; J1650; J1885; J2250; J2270; J2405; J2704; J2795; J3010; J3490; J7030; Q9967

== ENCOUNTER → 2021-08-10 10:03 | Outpatient (BNVA) | payer SELFPAY | PROVIDERS: PCP Nurse Practitioner Family; Referring Provider Podiatrist Foot & Ankle Surgery; Visit Provider Orthopaedic Surgery | DX: S82.001B Unspecified fracture of right patella, initial encounter for open fracture type I or II (principal); V89.2XXA Person injured in unspecified motor-vehicle accident, traffic, initial encounter | CPT/HCPCS: 27520; 73560 ==

== ENCOUNTER → 2021-08-27 15:11 | Outpatient (BNVA) | payer SELFPAY | PROVIDERS: PCP Nurse Practitioner Family; Visit Provider Podiatrist Foot & Ankle Surgery | DX: Z98.890 Other specified postprocedural states (principal); S82.831A Other fracture of upper and lower end of right fibula, initial encounter for closed fracture; X58.XXXA Exposure to other specified factors, initial encounter | CPT/HCPCS: 73610 ==

== ENCOUNTER 2021-09-03 14:59 | Outpatient (CLI) | payer SELFPAY ==
--- NOTE | 2021-09-03 15:26 | XR_ITS ---
WS: [id number] XR abdomen min 2V 92369 REASON FOR EXAM: Constipation FINDINGS: No free air or retroperitoneal air. Unremarkable bowel gas pattern. No significant calcifications in the abdomen or pelvis. No mass identified. XR/XR abdomen min 2V [id number] IMPRESSION: No acute abnormality.
== END 2021-09-03 15:00 | disposition home or self-care (01) ==
PROVIDERS: PCP Nurse Practitioner Family; Visit Provider Nurse Practitioner Family
DX: K59.00 Constipation, unspecified (principal)
CPT/HCPCS: 74019

== ENCOUNTER 2021-09-07 08:10 | Day surgery (SDC) | payer SELFPAY ==
[2021-09-06 10:16] VITALS: BMI 32.2
[2021-09-07 08:39] LABS: OR HCG Qualitative Urine Negative (Negative)
[2021-09-07] MEDS: gabapentin 300 mg Capsule PO (08:46)
[2021-09-07] MEDS: CELEcoxib 200 mg Capsule 400 MG PO (08:46)
[2021-09-07] MEDS: sodium chloride 0.9% 1,000 ML 30 ML IV (08:47)
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
--- NOTE | 2021-09-07 09:56 | W.PM.OPSUD ---
Surgery/Procedure H&P Update DATE OF PROCEDURE: September 07, 2021 DATE H&P PERFORMED: 09/03/21 CHANGES TO PREVIOUS DOCUMENTATION: None PREOP DIAGNOSIS: Nonhealing wound with fat layer exposed right ankle PLANNED PROCEDURE: Operation Date: 09/07/21 10:30 Proposed Procedures p Surgical preparation of wound bed, application of skin substitute and suture removal right lower extremity 57986,[id number],28230, L97.312(Right) - Tate Buckley DPM
[2021-09-07] MEDS: vancomycin 1,000 MG SDV 1000 MG IRRIGATION (10:30)
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
[2021-09-07 10:56] VITALS: BP 101/58; PULSE 66; RESP 16; TEMP 36.2; O2SAT 94
[2021-09-07 11:00] VITALS: BP 97/60; PULSE 66; RESP 16; O2SAT 95
[2021-09-07 11:05] VITALS: BP 104/69; PULSE 78; RESP 18; O2SAT 99
[2021-09-07 11:09] VITALS: BP 105/72; PULSE 73; RESP 18; TEMP 36.2; O2SAT 99
[2021-09-07 11:16] VITALS: BP 112/75; PULSE 78; RESP 16; TEMP 36.1; O2SAT 99
[2021-09-07 12:11] VITALS: BP 121/87; PULSE 62; RESP 18; O2SAT 100
--- NOTE | 2021-09-07 13:30 | ANE.PACU2 ---
Inpatient post-anesthesia follow up: Airway intact: Yes Vital signs: Temperature 97.0 F Pulse Rate 62 Respiratory Rate 18 Blood Pressure 121/87 Pulse Oximetry 100 Oxygen Delivery Me thod Room Air Oxygen Flow Rate Fraction of Inspir ed Oxygen Hydration adequate: Yes Nausea and vomiting: No Pain level: 1 Mental status: Baseline
== END 2021-09-07 12:15 | disposition home or self-care (01) ==
PROVIDERS: Anesthesiology; PCP Nurse Practitioner Family; Visit Provider Podiatrist Foot & Ankle Surgery
PROC: (CPT 15004; principal; 2021-09-07 10:30)
DX: L97.312 Non-pressure chronic ulcer of right ankle with fat layer exposed (principal); M06.9 Rheumatoid arthritis, unspecified; I10 Essential (primary) hypertension; E28.2 Polycystic ovarian syndrome
CPT/HCPCS: 15004; 15271; 15850; 84703; C1762; J2250; J2704; J3010; J3370; J7030

== ENCOUNTER 2021-09-19 16:15 | Outpatient (CLI) | payer SELFPAY | END 2021-09-19 16:16 | disposition home or self-care (01) | LOC: SPT 16:16 | PROVIDERS: PCP Nurse Practitioner Family; Visit Provider Podiatrist Foot & Ankle Surgery | DX: Z46.89 Encounter for fitting and adjustment of other specified devices (principal); S82.871D Displaced pilon fracture of right tibia, subsequent encounter for closed fracture with routine healing; S82.831D Other fracture of upper and lower end of right fibula, subsequent encounter for closed fracture with routine healing; X58.XXXD Exposure to other specified factors, subsequent encounter | CPT/HCPCS: L4361 ==

== ENCOUNTER 2021-09-21 11:40 | Outpatient (CLI) | payer SELFPAY ==
--- NOTE | 2021-09-21 | USCV_ITS ---
Joy Sorenson Age: 26 Gender: F : 1995 Exam Date: 09/21/2021 13:54 Ordering Phys: Tate Buckley DPM Technologist: NABILA [place] [facility] [place]: rle pain and swelling, s/p ankle surgery 07/22/21 HISTORY: rle leg pain and swelling. PROCEDURES: Venous duplex imaging was performed in only the right lower extremity. Examined bilaterally were the greater saphenous, common femoral, superficial femoral, profunda, popliteal, posterior tibial veins, and peroneal trunk.. FINDINGS: Normal 2-D Doppler and augmentation and compressibility throughout the lower extremity venous structures. Additional imaging through the proximal calf veins also reveals no thrombus. Limited evaluation of the greater saphenous vein is patent with no thrombus.. The left common femoral vein for comparison is normal. CONCLUSIONS No DVT right lower extremity. Dr. Es Valdez DO (Electronically Signed) Final Date: 21 September 2021 14:28 S
== END 2021-09-21 11:41 | disposition home or self-care (01) ==
LOC: RAD 11:41
PROVIDERS: PCP Nurse Practitioner Family; Visit Provider Podiatrist Foot & Ankle Surgery
DX: Z48.89 Encounter for other specified surgical aftercare (principal); M79.89 Other specified soft tissue disorders
CPT/HCPCS: 93971

== ENCOUNTER → 2021-09-25 15:43 | Outpatient (BNVA) | payer SELFPAY | PROVIDERS: PCP Nurse Practitioner Family; Visit Provider Podiatrist Foot & Ankle Surgery | DX: Z98.890 Other specified postprocedural states (principal) | CPT/HCPCS: 73610 ==

== ENCOUNTER 2021-10-25 10:26 | Day surgery (SDC) | payer SELFPAY ==
[2021-10-25] VITALS (9 sets, daily range): BP systolic 94–129; BP diastolic 33–67; PULSE 59–87; RESP 18; TEMP 36.3–36.7; O2SAT 95–100
[2021-10-25 10:49] LABS: OR HCG Qualitative Urine Negative (Negative)
--- NOTE | 2021-10-25 10:59 | P.ANESASSM_ITS ---
Pre-Anesthetic Assessment Height/Weight: Height 1.7 m Weight 90.718 kg Preop Diagnosis: Wound exposed to fat layer right ankle Operation Date: 10/25/21 12:00 Proposed Procedures p Surgical preparation of wound bed, application of skin substitute and suture removal right lower extremity CPT:93161, 15820, 62639,I97.312(Right) - Tate Buckley DPM Familial anesthetic complications: None Was Beta Argelia taken within 24 hours: N/A Was Clonidine taken within 24 hours: N/A Last intake: > 8 hrs Social No alcohol and No tobacco Exam alert, oriented x 3, clear to auscultation bilaterally and regular rate & rhythm Airway Mallampati: Class II Dentition: full Pulmonary None reported CV/HEM None reported None reported Hepatic None reported GI None reported Metabolic None reported Musc/skel Rheumatoid Arthritis Neuropsych None reported Anesthetic Plan ASA status: 2 Anesthesia: MAC Risk of > 500 ml blood loss (7ml/kg in children): No Medications/Allergies Home Medications Medication Instructions Recorded Confirmed Last Taken Type mupirocin 2 % topical ointment 1 applic topical BID #22 grams 10/02/21 10/24/21 Unknown Rx gabapentin 300 mg capsule 300 mg PO Q12H 30 days #60 caps 10/04/21 10/25/21 10/24/21 Rx ibuprofen 800 mg tablet 800 mg PO Q8H 10/23/21 10/24/21 Unknown History Allergies Allergy/AdvReac Type Severity Reaction Status Date / Time aloe Allergy Unknown Verified 10/23/21 15:36 bacitracin Allergy ADR-Itching Verified 10/25/21 10:51 hydromorphone Allergy ALGY-Rash Verified 10/23/21 15:36 [facility] Anesthesia Medical History History of fracture of tibia ORIF right tib/fib Hypertension PCOS (polycystic ovarian syndrome) Surgical History S/P knee surgery ORIF right tib/fib Social History Smoking and tobacco status: never smoked Smoking risk assessment/counseling performed?: Yes (Not currently using tobacco.) Alcohol intake: never Counseling given: No Household members: significant other Housing: House Marital status: Current occupational status: unemployed Female Reproductive History Date of last menstrual period: 08/06/21 Para: 0 Spontaneous abortions: No Data Anesthesia Cardiac Studies: No Data to Display
[2021-10-25] MEDS: sodium chloride 0.9% 1,000 ML 30 ML IV (11:00)
--- NOTE | 2021-10-25 12:00 | W.PM.OPSUD ---
Surgery/Procedure H&P Update DATE OF PROCEDURE: October 25, 2021 DATE H&P PERFORMED: 10/23/21 CHANGES TO PREVIOUS DOCUMENTATION: none PREOP DIAGNOSIS: Wound exposed to fat layer right ankle PLANNED PROCEDURE: Operation Date: 10/25/21 12:00 Proposed Procedures p Surgical preparation of wound bed, application of skin substitute and suture removal right lower extremity CPT:62753, 08405, 53635,I97.312(Right) - Tate Buckley DPM
[2021-10-25] MEDS: ceFAZolin 2,000 MG in sodium chloride 0.9% (plus) 50 ML 100 MG IV (12:14)
[2021-10-25] MEDS: lidocaine 2% INJ 20 mL 10 ML INJECTION (12:28)
--- NOTE | 2021-10-25 12:42 | PM.OP ---
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 Post-op diagnosis: Same Procedure done: Surgical preparation of wound bed, application of skin substitute right lower extremity CPT: 76286, 06467 Implants: 5-0 Monocryl Specimens removed/disposition: None Pathology: None Surgeon: Tate Buckley D.P.M. New Client Banking Services Clerk: Pascual Estimated blood loss: 5 0 Brief History: Patient doing well with range of motion exercises will continue with this.? Weightbearing as tolerated.? Delaying her recovery and getting back into physical therapy and normal bathing at this time as her wounds at the anterior medial right ankle and posterior lateral right ankle.? Discussed benefit of surgical debridement and application of biologic graft to potentially accelerate granulation tissue and scaffolding for healing patient would like to proceed with this.? Planning on outpatient surgical debridement with wound bed preparation and application of biologic graft 10/25/2021 under MAC anesthesia.? Risks include pain, bleeding, numbness, infection, failure to incorporate biologic graft and need for further surgical intervention. Procedure: Under mild sedation the patient was brought to the operating room and remained on the gurney in supine position. A timeout was performed. Anesthesia was then administered by the anesthesia service. Local anesthesia was injected by myself consisting of 20 cc of one-to-one mixture 1% lidocaine and 0.25% Marcaine plain proximal in a V-block fashion to the medial malleolus and posterior lateral ankle. Well-padded pneumatic tourniquet applied to the right high calf. This was not inflated or utilize during the duration of the procedure. Right lower extremity was scrubbed, prepped and draped utilizing normal aseptic technique. Attention was directed to the medial anterior right ankle as well as posterior lateral ankle where a wound exposed fat layer was appreciated with fiber granular base. Devitalized epidermis, dermis, subcutaneous tissue and devitalized fat layer was sharply and excisionally debrided with pickups and a #15 scalpel. All devitalized tissue was debrided and an improved bleeding granular base was appreciated. Next utilizing manufacture technique a Stratta bioengineered graft was sewed to the wound bed utilizing 5-0 Monocryl. Post debridement wound measurements at the anterior medial wound right ankle 4.4 cm x 2.7 cm x 0.2 cm and posterior lateral wound at the right ankle postdebridement wound measurements were 2.2 cm x 0.4 cm x 0.2 cm. The areas were then dressed utilizing nonadherent Adaptic, sterile 4 x 4, Kerlix and Sudheer wrap. Patient tolerated the procedure and anesthesia well and was transferred to the PACU with vital signs stable and vascular status intact. Following a period of postop monitoring she will be discharged home. Was given instructions to change the outer dressings and leave the Adaptic layer undisturbed starting tomorrow and to do this once daily. Will follow-up in podiatry clinic next week.
--- NOTE | 2021-10-25 12:55 | ANE.PACU2 ---
Inpatient post-anesthesia follow up: Airway intact: Yes Vital signs: Temperature 97.4 F Pulse Rate 77 Respiratory Rate 18 Blood Pressure 100/55 Pulse Oximetry 95 Oxygen Delivery Me thod Room Air Oxygen Flow Rate 6 Fraction of Inspir ed Oxygen Hydration adequate: Yes Nausea and vomiting: No Pain level: 1 Mental status: Baseline
== END 2021-10-25 13:44 | disposition home or self-care (01) ==
PROVIDERS: Anesthesiology; PCP Nurse Practitioner Family; Visit Provider Podiatrist Foot & Ankle Surgery
PROC: (CPT 13160; principal; 2021-10-25 12:00)
DX: L97.312 Non-pressure chronic ulcer of right ankle with fat layer exposed (principal); M06.9 Rheumatoid arthritis, unspecified; I10 Essential (primary) hypertension; E28.2 Polycystic ovarian syndrome
CPT/HCPCS: 15004; 15271; 81025; 84703; C1763; J2250; J2405; J2704; J3010; J3490; J7030

== ENCOUNTER 2021-11-27 06:00 | Outpatient (RCR) | payer SELFPAY | END 2021-12-07 23:59 | disposition home or self-care (01) | LOC: SPT 06:00 | PROVIDERS: PCP Nurse Practitioner Family; Visit Provider Podiatrist Foot & Ankle Surgery | DX: Z47.89 Encounter for other orthopedic aftercare (principal); M25.571 Pain in right ankle and joints of right foot | CPT/HCPCS: 97110; 97161 ==

== ENCOUNTER → 2021-12-05 07:53 | Outpatient (BNVA) | payer SELFPAY | PROVIDERS: PCP Nurse Practitioner Family; Visit Provider Podiatrist Foot & Ankle Surgery | DX: Z98.890 Other specified postprocedural states (principal); L97.312 Non-pressure chronic ulcer of right ankle with fat layer exposed; S82.831D Other fracture of upper and lower end of right fibula, subsequent encounter for closed fracture with routine healing; S90.511D Abrasion, right ankle, subsequent encounter; S82.871D Displaced pilon fracture of right tibia, subsequent encounter for closed fracture with routine healing; X58.XXXD Exposure to other specified factors, subsequent encounter; Z48.89 Encounter for other specified surgical aftercare | CPT/HCPCS: 73610 ==

== ENCOUNTER 2021-12-08 06:00 | Outpatient (RCR) | payer SELFPAY | END 2022-01-07 23:59 | disposition home or self-care (01) | LOC: SPT 06:00 | PROVIDERS: PCP Nurse Practitioner Family; Visit Provider Podiatrist Foot & Ankle Surgery | DX: Z47.89 Encounter for other orthopedic aftercare (principal); M25.571 Pain in right ankle and joints of right foot | CPT/HCPCS: 97110 ==

== ENCOUNTER → 2021-12-20 10:15 | Outpatient (BNVA) | payer SELFPAY | PROVIDERS: PCP Nurse Practitioner Family; Visit Provider Podiatrist Foot & Ankle Surgery | DX: S90.511D Abrasion, right ankle, subsequent encounter (principal); S82.871D Displaced pilon fracture of right tibia, subsequent encounter for closed fracture with routine healing; X58.XXXD Exposure to other specified factors, subsequent encounter; S82.831D Other fracture of upper and lower end of right fibula, subsequent encounter for closed fracture with routine healing; L97.312 Non-pressure chronic ulcer of right ankle with fat layer exposed; Z98.890 Other specified postprocedural states; Z48.89 Encounter for other specified surgical aftercare | CPT/HCPCS: 73610 ==

== ENCOUNTER 2021-12-20 11:46 | Outpatient (CLI) | payer SELFPAY | END 2021-12-20 11:47 | disposition home or self-care (01) | LOC: SPT 11:46 | PROVIDERS: PCP Nurse Practitioner Family; Visit Provider Podiatrist Foot & Ankle Surgery | DX: Z46.89 Encounter for fitting and adjustment of other specified devices (principal); S82.831D Other fracture of upper and lower end of right fibula, subsequent encounter for closed fracture with routine healing; S90.511D Abrasion, right ankle, subsequent encounter; S82.871D Displaced pilon fracture of right tibia, subsequent encounter for closed fracture with routine healing; X58.XXXD Exposure to other specified factors, subsequent encounter; L97.312 Non-pressure chronic ulcer of right ankle with fat layer exposed; Z48.89 Encounter for other specified surgical aftercare; Z98.890 Other specified postprocedural states | CPT/HCPCS: 97760; L1902 ==

== ENCOUNTER → 2022-01-16 11:09 | Outpatient (BNVA) | payer SELFPAY | PROVIDERS: PCP Nurse Practitioner Family; Visit Provider Podiatrist Foot & Ankle Surgery | DX: Z01.818 Encounter for other preprocedural examination (principal) | CPT/HCPCS: 36415; 82306; 82607; 83036 ==

== ENCOUNTER → 2022-01-23 10:47 | Outpatient (BNVA) | payer SELFPAY | PROVIDERS: PCP Nurse Practitioner Family; Visit Provider Podiatrist Foot & Ankle Surgery | DX: T84.84XD Pain due to internal orthopedic prosthetic devices, implants and grafts, subsequent encounter (principal); S82.831D Other fracture of upper and lower end of right fibula, subsequent encounter for closed fracture with routine healing; S82.871D Displaced pilon fracture of right tibia, subsequent encounter for closed fracture with routine healing; X58.XXXD Exposure to other specified factors, subsequent encounter; Z98.890 Other specified postprocedural states; M85.871 Other specified disorders of bone density and structure, right ankle and foot | CPT/HCPCS: 73630 ==

== ENCOUNTER 2022-02-08 10:29 | Day surgery (SDC) | payer SELFPAY ==
[2022-02-07 11:27] VITALS: BMI 32.8
[2022-02-08] VITALS (11 sets, daily range): BP systolic 90–130; BP diastolic 46–80; PULSE 56–80; RESP 10–21; TEMP 36.3–36.5; O2SAT 11–99
[2022-02-08 11:15] LABS: OR HCG Qualitative Urine Negative (Negative)
[2022-02-08] MEDS: gabapentin 300 mg Capsule PO (11:24)
[2022-02-08] MEDS: CELEcoxib 200 mg Capsule 400 MG PO (11:24)
[2022-02-08] MEDS: sodium chloride 0.9% 1,000 ML 30 ML IV (11:24)
--- NOTE | 2022-02-08 11:30 | ANES.PREANE2 ---
Pre-Anesthetic Assessment Height/Weight: Height 1.7 m Weight 95.254 kg Temp Pulse Resp BP Pulse Ox O2 Del Method 97.3 F L 75 18 130/71 99 02/08/22 11:06 02/08/22 11:06 02/08/22 11:06 02/08/22 11:06 02/08/22 11:06 02/08/22 11:06 Preop Diagnosis: Painful hardware right ankle Operation Date: 02/08/22 12:00 Proposed Procedures p Deep hardware removal, right ankle 35568,T84.84XA(Right) - Tate Buckley DPM Familial anesthetic complications: none Was Beta Argelia taken within 24 hours: N/A Was Clonidine taken within 24 hours: N/A Last intake: Intake Last Liquid Date 02/07/22 Last Liquid Time 18:00 Last Solid Date 02/07/22 Last Solid Time 18:00 Social No alcohol and No tobacco Exam alert, oriented x 3, clear to auscultation bilaterally and regular rate & rhythm Airway Mallampati: Class II Dentition: full Pulmonary None reported Musc/skel Rheumatoid Arthritis Anesthetic Plan ASA status: 2 Anesthesia: General Risk of > 500 ml blood loss (7ml/kg in children): No Other Pertinent Information Patient offered nerve block, but refuses to have it performed while awake. Will check on patient in recovery to see if she would like block at that time. Medications/Allergies Home Medications Medication Instructions Recorded Confirmed Last Taken Type mupirocin 2 % topical ointment 1 applic topical BID #22 grams 10/02/21 02/07/22 Unknown Rx ibuprofen 800 mg tablet 800 mg PO Q8H 10/23/21 02/07/22 Unknown History gabapentin 300 mg capsule See Rx Instructions .Route 10/31/21 02/07/22 02/07/22 Rx .COMPLEX #60 caps ASO #1 ea 12/20/21 02/04/22 Unknown Rx tramadol 50 mg tablet (Ultram) 50 mg PO Q4H PRN pain 7 days #42 01/23/22 02/07/22 02/08/22 Rx tabs Allergies Allergy/AdvReac Type Severity Reaction Status Date / Time aloe Allergy Unknown Verified 02/04/22 11:30 bacitracin Allergy ADR-Itching Verified 02/04/22 11:30 hydromorphone Allergy ALGY-Rash Verified 02/04/22 11:30 Current Medications Generic Name Dose Route Start Last Admin Trade Name Damaris PRN Reason Stop Dose Admin Sodium Chloride 1,000 mls @ 30 mls/hr 02/08/22 10:45 02/08/22 11:24 Sodium Chloride 0.9% IV 02/09/22 10:44 30 mls/hr .Q24H KALEE Administration PFSH Anesthesia Medical History History of fracture of tibia ORIF right tib/fib Hypertension PCOS (polycystic ovarian syndrome) Surgical History S/P knee surgery ORIF right tib/fib Social History Smoking and tobacco status: never smoked Smoking risk assessment/counseling performed?: Yes (Not currently using tobacco.) Alcohol intake: never Counseling given: No Household members: significant other Housing: House Marital status: Current occupational status: unemployed Female Reproductive History Date of last menstrual period: 02/03/22 Para: 0 Spontaneous abortions: No Data Anesthesia Cardiac Studies: No Data to Display
--- NOTE | 2022-02-08 11:30 | W.PM.OPSUD ---
Surgery/Procedure H&P Update DATE OF PROCEDURE: February 08, 2022 DATE H&P PERFORMED: 02/04/22 CHANGES TO PREVIOUS DOCUMENTATION: None PREOP DIAGNOSIS: Painful hardware right ankle PRIMARY INDICATION FOR PROCEDURE: Painful retained hardware, right lower extremity. PLANNED PROCEDURE: Operation Date: 02/08/22 12:00 Proposed Procedures p Deep hardware removal, right ankle 88850,T84.84XA(Right) - Tate Buckley DPM
[2022-02-08] MEDS: ceFAZolin 2,000 MG in sodium chloride 0.9% (plus) 50 ML 100 MG IV (12:03)
--- NOTE | 2022-02-08 13:32 | SUR.OPER ---
1307 pt repositioned to prone position by OR team. all positioning verified by anesthesia and dr. ta.
--- NOTE | 2022-02-08 14:02 | PM.OP ---
Operative Report Date of procedure: February 08, 2022 Pre-op diagnosis: Preop Diagnosis Painful hardware right ankle Post-op diagnosis: Same Post-op findings: Hardware removed successfully without fragmentation or failure Procedure done: Deep hardware removal x3 right ankle. CPT code 98826 x3. 3 separate incisions, 3 hardware constructs removed. Implants: 3-0 Vicryl, 4-0 Vicryl, 4-0 nylon, skin janet. Specimens removed/disposition: [facility] medial malleolus hook plate with 3.5 millimeter screws. [place] one third tubular plate with 3.5 millimeter screws. [facility] posterior tibial plate with 4.0 millimeter screws. Pathology: None Surgeon: Tate Buckley D.P.M. Business Process Manager: John Estimated blood loss: 5 See intraoperative documentation IV fluids: None Urine output: None Complications: None Findings: Hardware removed successfully x3 Brief History: Patient presents with increased pain that she believes comes from hardware, has had increased pain after working with physical therapy near the site of hardware.? Would like to discuss hardware removal.? I explained to the patient that her pain is multifactorial.? 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 She understands at this will potentially be a staged procedure ending with arthrodesis.? I reviewed at length with the patient, the risks, potential complications, benefits, alternatives, expectations, and typical outcomes associated with the surgery. The risks and potential complications were explained in detail, including but not limited to infection, wound dehiscence or soft tissue complications, bleeding and hematoma, chronic edema, neuritis or nerve damage producing numbness or chronic pain, CRPS, failure to relieve pain or worsening pain, thick / painful / unsightly scar, limited motion / stiffness, malposition, delayed union, malunion, or nonunion, fracture, reaction to implants, anesthetic complications, venous thromboembolism, and deformity recurrence.? I discussed the notion of no regrets with the patient as it pertains to complications and outcomes. The patient seemed to understand the nature of the proposed care and required convalescence. They asked appropriate questions, answered to their satisfaction. They are aware no guarantees can be made as to a satisfactory outcome and they understand there may be other possible unforeseen complications or outcomes not listed here that will be treated accordingly if they arise. There were no written or implied guarantees given to the patient. ? Patient is n.p.o. since midnight, informed consent signed by patient and myself, initialed her right lower extremity. Patient wishes to proceed. Procedure: Under mild sedation the patient was brought to the operating room and remained on the gurney in supine position. A timeout was performed. Anesthesia was then administered by the anesthesia service. Local anesthesia injected by myself consisting of total of 30 cc 2:1 ratio 20 cc of 0.5 to Marcaine plain and 10 cc of Exparel mixed in a right five-point ankle block fashion. Well-padded pneumatic tourniquet applied to the right high calf. The right lower extremity was scrubbed, prepped and draped utilizing normal aseptic technique. The right lower extremity was exanguinated with an Esmarch bandage and the tourniquet was inflated to 250 mmHg. Attention was directed to the right lateral ankle where over the previous well-healed cicatrix a #15 blade was utilized to perform skin incision with dissection carried down through subcutaneous tissue to the layer of hardware at the right lateral fibula distally. Care was taken to retract and preserve neurovascular and tendinous structures. All bleeders were ligated and cauterized as necessary. Removed 7 screws and a one third tubular plate followed by saline flush. I was able to inspect directly the fracture consistent with Justus Le C of the right fibula. No motion or micromotion appreciated with loading and palpation at the fracture site. The incision was irrigated with copious amounts of sterile skin solution. Negative cotton hook test observed intraoperatively with C arm under live. Further irrigation was performed followed by closure of the lateral right ankle incision utilizing 3-0 Vicryl at periosteum, 4-0 Vicryl subcutaneous tissue and skin janet. All hardware was explanted successfully without failure or fragmentation and passed to the back table. Attention was then directed to the right medial ankle where a curvilinear incision was made over the medial malleolus through skin with a #15 blade with dissection carried down carefully through subcutaneous tissue utilizing accommodation of sharp and blunt technique. Care was taken to retract and preserve neurovascular and tendinous structures. All bleeders were ligated and cauterized as necessary. The medial hook plate was encountered and a total of 3 screws and the hook plate were explanted in total without failure or fragmentation these were passed from the operative field to the back table. The incision was irrigated with copious amounts of sterile saline solution and closed in a layered fashion with 3-0 Vicryl at periosteum. 4-0 Vicryl subcutaneous tissue and 3-0 nylon at skin utilizing horizontal mattress and simple interrupted suture technique. The incision both laterally and medially were then dressed with sterile 4 x 4 gauze and sterile Coban and sterile field was taken down. The patient was then positioned from the gurney to prone position on the OR table with appropriate offloading and support. Coban and 4 x 4's were then removed and the right lower extremity was scrubbed, prepped and draped utilizing normal aseptic technique. The right foot was exanguinated as well as the right ankle and lower extremity with an Esmarch bandage followed by inflation of the right high calf tourniquet to 250 mmHg. Attention was then directed to the right posterior ankle where previous cicatrix was identified and directly into the previous cicatrix a linear longitudinal incision was made with #15 blade with dissection carried carefully down to hardware utilizing blunt and sharp technique. Care was taken to retract and preserve neurovascular and tendon structures. All bleeders were ligated and cauterized as necessary. Achilles tendon was retracted medially and flexor compartmental muscles laterally. The [place] medical plate was identified and a total of 5 screws all 4 mm in diameter were explanted in total along with the plate without failure or fragmentation. The incision was flushed with copious amounts of sterile saline solution followed by closure in a layered fashion with 3-0 Vicryl at deep fascia and periosteum. Subcutaneous tissue reapproximated utilizing 4-0 Vicryl and skin reapproximated with 4-0 nylon. Range of motion of the right ankle is smooth without crepitus intraoperatively and was able to appreciate 10 degrees of dorsiflexion and 40 degrees of plantarflexion. Ankle joint appeared stable and previously documented fractures appeared stable under stress views. The incisions were dressed with Adaptic, sterile 4 x 4's, Kerlix and Sudheer wrap followed by application of well-padded multilayer compressive posterior splint. Tourniquet was deflated and a prompt hyperemic response was noted to the distal digits of the right foot. Patient tolerated the procedure and anesthesia well and was transferred to the PACU with vital signs stable and vascular status intact. Following a period of postop monitoring she will be discharged home. Advised strict nonweightbearing at this time. She was given at home care instructions as well as follow-up and my cell phone number to contact me with any postoperative questions or concerns.
--- NOTE | 2022-02-08 14:21 | XR_ITS ---
WS: [id number] ANKLE RIGHT TECHNIQUE: 3 views of the right ankle CLINICAL INFORMATION: post op hardware removal COMPARISON: None. FINDINGS: Demineralization. Recent postoperative changes with hardware removal. Normal ankle mortise. Hardware screw tracks. Healed fracture involving the distal 3rd fibula shaft with callus formation and slight cortical irregularity. Normal talar dome. XR/XR ankle RT min 3V* [id number] IMPRESSION: Normal for postoperative purposes.
[2022-02-08] MEDS: ondansetron 2 mg/ML SDV 2 mL 4 MG IVP ×2 (14:33→14:40)
[2022-02-08] MEDS: metoclopramide 5 mg/mL SDV 2 mL 10 MG IVP (14:58)
--- NOTE | 2022-02-08 15:01 | ANES.PROC ---
Anesthesia Procedures Procedure/Date: 02/08/22 Nerve Block ^: Nerve Block 1: Main Anesthesia: general anesthesia Time Out Performed: Yes Consent: requested by attending/covering physician, from patient, from other, risks and benefits reviewed and patient agrees to proceed Nerve block location: popliteal (R) Anesthesia monitors applied: pulse oximetry, EKG, BP cuff and oxygen Nerve block position: supine Anesthetic Used: ropivicaine 0.5% (30 ml) and with decadron (4 mg) Ultrasound used to: recognize landmarks Nerve Stimulator Used?: No Interscalene/Femoral BLK: 4 stimuplex 21 g needle used for position and inplane approach and visualize local anesthetic spread Injection: neg aspiration of heme Patient Tolerated Procedure: well and no complications Complications: none
--- NOTE | 2022-02-08 15:09 | ANE.PACU2 ---
Inpatient post-anesthesia follow up: Airway intact: Yes Vital signs: Temperature 97.7 F Pulse Rate 79 Respiratory Rate 20 Blood Pressure 97/80 Pulse Oximetry 20 Oxygen Delivery Me thod Room Air Oxygen Flow Rate 10 Fraction of Inspir ed Oxygen Hydration adequate: Yes Nausea and vomiting: No Pain level: 1 Mental status: Baseline
== END 2022-02-08 15:45 | disposition home or self-care (01) ==
PROVIDERS: Anesthesiology; Visit Provider Podiatrist Foot & Ankle Surgery
PROC: (CPT 20680; principal; 2022-02-08 12:00)
DX: T84.84XA Pain due to internal orthopedic prosthetic devices, implants and grafts, initial encounter (principal); M06.9 Rheumatoid arthritis, unspecified; I10 Essential (primary) hypertension; E28.2 Polycystic ovarian syndrome
CPT/HCPCS: 20680; 73610; 81025; 84703; C9290; J0131; J0690; J1100; J1885; J2250; J2405; J2704; J2765; J2795; J3010; J3490; J7030

== ENCOUNTER → 2022-02-21 14:34 | Outpatient (BNVA) | payer SELFPAY | PROVIDERS: Visit Provider Podiatrist Foot & Ankle Surgery | DX: Y79.2 Prosthetic and other implants, materials and accessory orthopedic devices associated with adverse incidents (principal); T84.84XA Pain due to internal orthopedic prosthetic devices, implants and grafts, initial encounter; Z98.890 Other specified postprocedural states | CPT/HCPCS: 73610 ==

== ENCOUNTER → 2022-03-06 14:07 | Outpatient (BNVA) | payer SELFPAY | PROVIDERS: Visit Provider Podiatrist Foot & Ankle Surgery | DX: M25.571 Pain in right ankle and joints of right foot (principal); G89.29 Other chronic pain; Z98.890 Other specified postprocedural states; R60.9 Edema, unspecified | CPT/HCPCS: 73610 ==

== ENCOUNTER → 2022-03-12 10:48 | Outpatient (BNVA) | payer SELFPAY | PROVIDERS: Visit Provider Podiatrist Foot & Ankle Surgery | DX: Z98.890 Other specified postprocedural states (principal); S99.921A Unspecified injury of right foot, initial encounter; W50.1XXA Accidental kick by another person, initial encounter | CPT/HCPCS: 73610 ==

== ENCOUNTER → 2022-04-12 15:14 | Outpatient (BNVA) | payer SELFPAY | PROVIDERS: Visit Provider Podiatrist Foot & Ankle Surgery | DX: S82.831D Other fracture of upper and lower end of right fibula, subsequent encounter for closed fracture with routine healing (principal); S82.871D Displaced pilon fracture of right tibia, subsequent encounter for closed fracture with routine healing; X58.XXXD Exposure to other specified factors, subsequent encounter | CPT/HCPCS: 73610 ==

== ENCOUNTER → 2022-05-20 08:31 | Outpatient (BNVA) | payer SELFPAY | PROVIDERS: Visit Provider Podiatrist Foot & Ankle Surgery | DX: S82.871D Displaced pilon fracture of right tibia, subsequent encounter for closed fracture with routine healing (principal); X58.XXXD Exposure to other specified factors, subsequent encounter | CPT/HCPCS: 73610 ==

== ENCOUNTER → 2022-06-03 08:33 | Outpatient (BNVA) | payer SELFPAY | PROVIDERS: Visit Provider Podiatrist Foot & Ankle Surgery | DX: S93.601A Unspecified sprain of right foot, initial encounter (principal); X58.XXXA Exposure to other specified factors, initial encounter; M65.871 Other synovitis and tenosynovitis, right ankle and foot | CPT/HCPCS: 73630 ==

== ENCOUNTER → 2022-06-12 07:43 | Outpatient (BNVA) | payer SELFPAY | PROVIDERS: Visit Provider Podiatrist Foot & Ankle Surgery | DX: S93.601A Unspecified sprain of right foot, initial encounter (principal); M65.871 Other synovitis and tenosynovitis, right ankle and foot; X58.XXXA Exposure to other specified factors, initial encounter | CPT/HCPCS: 73630 ==

== ENCOUNTER → 2022-07-10 07:38 | Outpatient (BNVA) | payer SELFPAY | PROVIDERS: Visit Provider Podiatrist Foot & Ankle Surgery | DX: S82.831D Other fracture of upper and lower end of right fibula, subsequent encounter for closed fracture with routine healing (principal); S82.871D Displaced pilon fracture of right tibia, subsequent encounter for closed fracture with routine healing; X58.XXXD Exposure to other specified factors, subsequent encounter | CPT/HCPCS: 73610 ==

== ENCOUNTER → 2022-08-16 08:06 | Outpatient (BNVA) | payer SELFPAY | PROVIDERS: Visit Provider Podiatrist Foot & Ankle Surgery | DX: S82.831A Other fracture of upper and lower end of right fibula, initial encounter for closed fracture (principal); X58.XXXA Exposure to other specified factors, initial encounter; M25.571 Pain in right ankle and joints of right foot; G89.29 Other chronic pain | CPT/HCPCS: 73610 ==

== ENCOUNTER → 2023-01-08 08:11 | Outpatient (BNVA) | payer SELFPAY | PROVIDERS: Visit Provider Podiatrist Foot & Ankle Surgery | DX: S82.831D Other fracture of upper and lower end of right fibula, subsequent encounter for closed fracture with routine healing; S82.871D Displaced pilon fracture of right tibia, subsequent encounter for closed fracture with routine healing; M19.171 Post-traumatic osteoarthritis, right ankle and foot; X58.XXXD Exposure to other specified factors, subsequent encounter | CPT/HCPCS: 73610 ==

== ENCOUNTER → 2023-07-03 08:16 | Outpatient (BNVA) | payer SELFPAY | PROVIDERS: PCP Family Medicine Adult Medicine; Visit Provider Family Medicine Adult Medicine | DX: R03.0 Elevated blood-pressure reading, without diagnosis of hypertension (principal); R63.5 Abnormal weight gain; Z68.37 Body mass index [BMI] 37.0-37.9, adult; D50.0 Iron deficiency anemia secondary to blood loss (chronic) | CPT/HCPCS: 80053; 80061; 84443; 85025 ==

== ENCOUNTER 2023-08-22 22:41 | Emergency (ER) | payer SELFPAY ==
[2023-08-22 22:45] VITALS: BP 152/82; PULSE 90; RESP 16; TEMP 36.5; O2SAT 99
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
--- NOTE | 2023-08-22 23:15 | XRR_ITS ---
PROCEDURE INFORMATION: Exam: XR Right Ankle Exam date and time: 08/22/2023 11:17 PM Age: 28 years old Clinical indication: Right; Prior surgery; Surgery date: 6+ months; Surgery type: Orif/skin graft/ hardware removal; Patient HX: RT ankle pain post fall; HX RT ankle orif/ skin graft/hardware removal; Additional info: RT ankle pain/swelling post fall TECHNIQUE: Imaging protocol: Radiologic exam of the right ankle. Views: 3 or more views. COMPARISON: CR XR ankle RT min 3V* [id number] 01/08/2023 8:15 AM FINDINGS: Bones/joints: Stable partial fusion of distal right fibular shaft fracture. Continued chronic appearing erosions or radiolucencies in the distal fibula. Continued chronic appearing sclerosis and irregularity in the tibial plafond. Probable continued healing of the intra-articular portion of the distal tibia. Tiny calcaneal spur. Soft tissues: Normal. XR/XR ankle RT min 3V* [id number] IMPRESSION: 1. Stable partial fusion of distal right fibular shaft fracture. 2. Continued chronic appearing sclerosis and irregularity in the tibial plafond. 3. Probable continued healing of the intra-articular portion of the distal tibia. 4. 8 mm intra-articular loose body versus other lesion anterior to the dome of the talus on lateral ankle film.
== END 2023-08-23 00:47 | disposition home or self-care (01) ==
PROVIDERS: Emergency Provider Emergency Medicine; PCP Family Medicine Adult Medicine
DX: S93.401A Sprain of unspecified ligament of right ankle, initial encounter (principal); S96.911A Strain of unspecified muscle and tendon at ankle and foot level, right foot, initial encounter; M24.071 Loose body in right ankle; I10 Essential (primary) hypertension; W18.42XA Slipping, tripping and stumbling without falling due to stepping into hole or opening, initial encounter
CPT/HCPCS: 73610; 99283

== ENCOUNTER 2024-06-20 22:13 | Emergency (ER) | payer SELFPAY ==
[2024-06-20 22:34] VITALS: BP 158/81; PULSE 10; RESP 16; TEMP 38.1; O2SAT 96; BMI 36.0
--- NOTE | 2024-06-20 23:47 | CTR_ITS ---
PROCEDURE INFORMATION: Exam: CT Maxillofacial With Contrast; Mandible Exam date and time: 06/21/2024 12:29 AM Age: 29 years old Clinical indication: Jaw pain; C/O RT sided mandibular pain with dysphagia. History of tmj. ; Additional info: Severe right facial pain TECHNIQUE: Imaging protocol: Computed tomography maxillofacial with intravenous contrast. Exam focused on the mandible. Radiation optimization: All CT scans at this facility use at least one of these dose optimization techniques: automated exposure control; mA and/or kV adjustment per patient size (includes targeted exams where dose is matched to clinical indication); or iterative reconstruction. Contrast material: OMNI 350; Contrast volume: 100 ml; Contrast route: INTRAVENOUS (IV); COMPARISON: CT head wo con* [id number] 07/21/2021 10:36 AM RADIATION DOSE METRICS: Total DLP (mGy-cm): 583.88 FINDINGS: Bones: Mandible is unremarkable. No acute fracture. Soft tissues: Unremarkable. Teeth: Somewhat diffuse odontogenic disease. CT/CT facial bones w con [id number] IMPRESSION: 1. Unremarkable mandible. 2. Somewhat diffuse odontogenic disease.
[2024-06-21] MEDS: ketorolac 60 mg/2 mL INJ 30 MG IVP (00:06)
[2024-06-21 00:07] LABS: Erythrocyte Sedimentation Rate 4 mm/hr (0-15)
[2024-06-21] MEDS: dexamethasone 10 mg/mL INJ IVP (00:07)
[2024-06-21 00:09] VITALS: BP 142/89; PULSE 80; RESP 16; O2SAT 97
[2024-06-21 00:09] LABS: Basophils % 0.3 %; Eosinophils # 0.1 10^3/uL (0.0-0.8); Eosinophils % 1.1 %; Hematocrit 45.1 % (36-47); Lymphocytes # 2.2 10^3/uL (0.8-4.8); Lymphocytes % 22.9 %; Mean Corpuscular HGB Conc 31.5 g/dL (30-55); Mean Corpuscular Hemoglobin 27.3 pg (27-33); Mean Corpuscular Volume 86.7 fl (85-98); Mean Platelet Volume 9.5 fL (7.4-10.4); Monocytes # 0.5 10^3/uL (0.2-0.9); Monocytes % 4.7 %; Neutrophils # 6.72 10^3/uL (1.8-7.7); Neutrophils % 70.6 %; Nucleated Red Blood Cells % 0 %; Platelet Count 397 10^3/cmm (157-399); Red Cell Distribution Width 13.4 % (12.1-15.1); White Blood Count 9.52 10^3/uL (3.29-11.43)
[2024-06-21 00:18] LABS: Alanine Aminotransferase 64 U/L (0-33); Albumin Level 4.3 g/dL (3.5-5.2); Alkaline Phosphatase 106 U/L (35-105); Anion Gap 14.9 (5-19); Aspartate Amino Transferase 32 U/L (0-32); Blood Urea Nitrogen 7 mg/dL (6-20); C Reactive Protein 43.5 mg/L (0.0-4.9); Calcium 9.5 mg/dL (8.5-10.5); Carbon Dioxide 25 mmol/L (22-29); Chloride 104 mmol/L (98-107); Creatinine Clr Calc Pharmacy 130.0577; Globulin 3.3 g/dL (1.3-4.6); Glomerular Filtration Rate 85.4 mL/min (90-130); Glucose 106 mg/dL (65-115); Osmolality Calculated 288 mOsm/kg (285-295); Potassium 3.9 mmol/L (3.5-5.1); Sodium 140 mmol/L (136-145); Total Bilirubin 0.6 mg/dL (0.15-1.2); Total Protein 7.6 g/dL (6.6-8.7)
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
[2024-06-21] MEDS: iohexol 350 mg/mL 500 mL Btl (per mL) IV (00:30)
[2024-06-21] MEDS: orphenadrine 30 mg/mL Inj 2 mL 60 MG IVP (01:22)
[2024-06-21 01:25] VITALS: BP 129/86; PULSE 69; RESP 16; O2SAT 96
[2024-06-21 02:00] VITALS: BP 130/80; PULSE 79; RESP 16; O2SAT 98
== END 2024-06-21 01:52 | disposition home or self-care (01) ==
PROVIDERS: Emergency Provider Physician Assistant
DX: S03.40XA Sprain of jaw, unspecified side, initial encounter (principal); I10 Essential (primary) hypertension; X58.XXXA Exposure to other specified factors, initial encounter
CPT/HCPCS: 70487; 80053; 85025; 85651; 86140; 96374; 96375; 99285; J1100; J1885; J2360